=== PATIENT | male | born 1985 | race Caucasian/White ===

== ENCOUNTER 2022-05-24 18:06 | Emergency (ER) | payer OTHER ==
[~2022-05-24] VITALS: Ht 172.7 cm; Wt 86.2 kg
[2022-05-24] MEDS ORDERED: KETOROLAC TROMETHAMINE 15 MG/ML VIAL ONE (18:41)
[2022-05-24] MEDS ORDERED: ONDANSETRON HCL/PF 4 MG/2 ML VIAL ONE (18:41)
--- NOTE | 2022-05-24 18:45 | NUR ---
Patient came in to the er c/o RLQ abdominal pain, nuasea and lightheadedness since this morning. On room air, breathing evenly and unlabored. Kept comfortable, will continue to monitor accordingly.
--- NOTE | 2022-05-24 18:49 | NUR ---
urine collected and sent to lab.
[2022-05-24] MEDS ORDERED: KETOROLAC TROMETHAMINE INJ 30 MG/ML VIAL IV ONE (19:00)
[2022-05-24] MEDS ORDERED: IV NS 0.9% 500 ML BAG IV ONE (19:00)
[2022-05-24] MEDS ORDERED: ONDANSETRON HCL/PF 4 MG/2 ML VIAL IVP ONE (19:00)
[2022-05-24 19:25] LABS: BILIRUBIN,URINE NEGATIVE (NEGATIVE); COLOR,URINE YELLOW (YELLOW); LEUKOCYTE ESTERASE ,URINE NEGATIVE (NEGATIVE); NITRITE, URINE NEGATIVE (NEGATIVE); PH,URINE 6.5 (5.0-8.0); PROTEIN,URINE 1+ mg/dl (NEGATIVE); UGLUCOSE NEGATIVE (NEGATIVE)
[2022-05-24 19:27] LABS: ALBUMIN 4.5 g/dL (3.4-5.0); BILIRUBIN,DIRECT 0.3 mg/dL (0.0-0.2); BILIRUBIN,TOTAL 1.2 mg/dL (0.2-1.0); POTASSIUM 3.4 mmol/L (3.5-5.1); TOTAL PROTEIN, SERUM 7.9 g/dL (6.4-8.2)
[2022-05-24 19:54] LABS: BACTERIA,URINE RARE /HPF (None Seen); MUCUS,URINE Few /LPF (None Seen); RBC,URINE 51-80 /HPF (0-2); WBC,URINE 0-2 /HPF (0-3)
--- NOTE | 2022-05-24 20:01 | NUR ---
RECEIVED REPORT FROM VENKATESH MORATAYA. PATIENT CAME WITH CC OF RLQ PAIN RADIATING TO THE BACK. PATIENT IS AAOX4. ABLE TO MAKE NEEDS KNOWN. WITH IV ACCESS ON RIGHT AC G18. MEDS GIVEN. PER PATIENT, PAIN WAS RELIEVED AFTER MEDICATIONS GIVEN. AWAITS RESULTS. VITALS CHECKED.
[2022-05-24 20:04] LABS: BASOPHILS % (AUTO) 0.2 % (0.0-2.0); EOSINOPHILS % (AUTO) 0.3 % (0.0-6.0); HEMATOCRIT 46 % (39-51); HEMOGLOBIN 15.9 g/dL (13.5-17.5); LYMPHOCYTES % (AUTO) 9.5 % (20.0-44.0); MEAN CORPUSCULAR HGB CONC 35 g/dl (31.0-36.0); MEAN CORPUSCULAR VOLUME 86 fL (80-96); MONOCYTES # (AUTO) 0.4 K/uL (0.1-1.30); MONOCYTES % (AUTO) 3.6 % (2.0-12.0); NEUTROPHILS # (AUTO) 9.4 K/uL (1.8-8.9); NEUTROPHILS % (AUTO) 86.4 % (43.0-81.0); PLATELET COUNT (AUTO) 194 K/uL (150-450); RED BLOOD CELL COUNT(AUTO) 5.28 MIL/uL (4.5-6.0); WHITE BLOOD COUNT (AUTO) 10.9 K/uL (4.3-11.0)
[2022-05-24] MEDS ORDERED: ONDA4TAB5 PO (20:13)
[2022-05-24] MEDS ORDERED: TAMS-12 PO (20:13)
[2022-05-24] MEDS ORDERED: IBUP-1955 PO (20:13)
[2022-05-24] MEDS ORDERED: TAMSULOSIN 0.4 MG CAP.SR.24H ONE (20:20)
--- NOTE | 2022-05-24 20:26 | NUR ---
Patient discharged to home in stable condition. Written and verbal after care instructions given. Patient verbalizes understanding of instruction.IV removed. Catheter intact and site benign. Pressure and 4x4 applied to site. No bleeding noted.
[2022-05-24] MEDS ORDERED: TAMSULOSIN 0.4 MG CAP.SR.24H PO ONE (20:30)
[2022-05-24 20:33] VITALS: BP 140/88
== END 2022-05-24 20:34 | disposition home or self-care (01) ==
LOC: ER 18:23
DX: N20.0 Calculus of kidney (principal); R10.9 Unspecified abdominal pain; R11.2 Nausea with vomiting, unspecified; Z79.899 Other long term (current) drug therapy
CPT/HCPCS: 99284; 74176; 96374; 96375; 85025; 80048; 87086; 83690; 80076; 81001; 36415; 85730; J2405; J7040; J1885

== ENCOUNTER 2022-11-29 22:25 | Emergency (ER) | payer OTHER ==
[~2022-11-29] VITALS: Ht 172.7 cm; Wt 88.5 kg
[~2022-11-29 22:25] MED LIST: IBUP-1955 PO; ONDA4TAB5 PO; TAMS-12 PO
[2022-11-29] MEDS ORDERED: ONDANSETRON HCL/PF 4 MG/2 ML VIAL IVP ONE (23:00)
[2022-11-29] MEDS ORDERED: KETOROLAC TROMETHAMINE INJ 30 MG/ML VIAL IV ONE (23:00)
[2022-11-29] MEDS ORDERED: IV NS 0.9% 1,000 ML BAG IV ONE (23:00)
[2022-11-29] MEDS ORDERED: KETOROLAC TROMETHAMINE INJ 30 MG/ML VIAL ONE (23:08)
[2022-11-29] MEDS ORDERED: ONDANSETRON HCL/PF 4 MG/2 ML VIAL ONE (23:08)
--- NOTE | 2022-11-29 23:20 | NUR ---
IV LINE ESTABLISHED, [id number]
--- NOTE | 2022-11-29 23:21 | NUR ---
BLOOD COLLECTED AND SENT TO LAB
[2022-11-29 23:26] LABS: BASOPHILS % (AUTO) 0.3 % (0.0-2.0); HEMATOCRIT 43 % (39-51); HEMOGLOBIN 15.1 g/dL (13.5-17.5); LYMPHOCYTES # (AUTO) 0.8 K/uL (0.8-4.8); LYMPHOCYTES % (AUTO) 6.2 % (20.0-44.0); MEAN CORPUSCULAR HGB CONC 35 g/dl (31.0-36.0); MEAN CORPUSCULAR VOLUME 86 fL (80-96); MONOCYTES # (AUTO) 0.3 K/uL (0.1-1.30); MONOCYTES % (AUTO) 2.4 % (2.0-12.0); NEUTROPHILS # (AUTO) 11.6 K/uL (1.8-8.9); NEUTROPHILS % (AUTO) 91.1 % (43.0-81.0); PLATELET COUNT (AUTO) 198 K/uL (150-450); RED BLOOD CELL COUNT(AUTO) 5.04 MIL/uL (4.5-6.0); WHITE BLOOD COUNT (AUTO) 12.7 K/uL (4.3-11.0)
--- NOTE | 2022-11-29 23:26 | NUR ---
[facility]
[2022-11-29 23:28] LABS: BILIRUBIN,URINE NEGATIVE (NEGATIVE); COLOR,URINE YELLOW (YELLOW); LEUKOCYTE ESTERASE ,URINE NEGATIVE (NEGATIVE); NITRITE, URINE NEGATIVE (NEGATIVE); PROTEIN,URINE 1+ mg/dl (NEGATIVE); UGLUCOSE NEGATIVE (NEGATIVE)
--- NOTE | 2022-11-29 23:40 | NUR ---
PT RETURNED FROM CT SCAN
[2022-11-29 23:41] LABS: ALBUMIN 4.5 g/dL (3.4-5.0); BILIRUBIN,DIRECT 0.2 mg/dL (0.0-0.2); BILIRUBIN,TOTAL 0.8 mg/dL (0.2-1.0); CALCIUM, SERUM 9.2 mg/dL (8.5-10.1); CREATININE 0.9 mg/dL (0.6-1.3); POTASSIUM 3.4 mmol/L (3.5-5.1); TOTAL PROTEIN, SERUM 7.8 g/dL (6.4-8.2)
[2022-11-29 23:48] LABS: BACTERIA,URINE Rare /HPF (None Seen); SQUAMOUS EPITHELIAL CELL,UR Few /HPF (None Seen); WBC,URINE 0-2 /HPF (0-3)
[2022-11-29] MEDS ORDERED: IBUP-1957 PO (23:58)
[2022-11-29] MEDS ORDERED: ONDA4TAB5 PO (23:58)
--- NOTE | 2022-11-30 00:16 | NUR ---
Patient discharged to home in stable condition. Written and verbal after care instructions given. Patient verbalizes understanding of instruction.
--- NOTE | 2022-11-30 00:16 | NUR ---
IV removed. Catheter intact and site benign. Pressure and 4x4 applied to site. No bleeding noted.
[2022-11-30] MEDS ORDERED: ONDA4TAB5 PO (00:17)
[2022-11-30] MEDS ORDERED: IBUP-1957 PO (00:17)
[2022-11-30 00:18] VITALS: BP 148/96
== END 2022-11-30 00:22 | disposition home or self-care (01) ==
LOC: ER 22:26
DX: N20.0 Calculus of kidney (principal)
CPT/HCPCS: 99285; 74176; 96374; 96361; 96375; 85025; 80048; 83690; 80076; 81001; 36415; 85730; J1885; J2405; J7030